=== PATIENT | male | born 1990 | race African-American/Black ===

== ENCOUNTER 2019-05-19 19:49 | Emergency (ER) | payer SELFPAY ==
[2019-05-19] MEDS ORDERED: TETANUS & DIPHTHERIA TOX,ADULT 0.5 ML VIAL ONE (20:11)
[2019-05-19] MEDS ORDERED: HYDROCODONE/APAP 10/325 TAB ONE (20:21)
[2019-05-19] MEDS ORDERED: DERMABOND SKIN ADHESIVE TOP ONE ×2 (20:24→23:07)
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
[2019-05-19] MEDS ORDERED: CEFTRIAXONE/SWI 1gm 1 GM/10 ML SYR ONE (21:26)
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
== END 2019-05-19 23:28 | disposition short-term general hospital (02) ==
LOC: ER 19:49
DX: S92.335A Nondisplaced fracture of third metatarsal bone, left foot, initial encounter for closed fracture (principal); S92.325A Nondisplaced fracture of second metatarsal bone, left foot, initial encounter for closed fracture; S92.345A Nondisplaced fracture of fourth metatarsal bone, left foot, initial encounter for closed fracture; S91.312A Laceration without foreign body, left foot, initial encounter; V86.55XA Driver of 3- or 4- wheeled all-terrain vehicle (ATV) injured in nontraffic accident, initial encounter; Z23 Encounter for immunization
CPT/HCPCS: 70450; 71045; 90471; 90714; 96365; 96366; 99285; J0696

== ENCOUNTER 2025-06-27 04:18 | Emergency (ER) | payer OTHER, SELFPAY ==
--- OUTSIDE RECORDS SUMMARY | 2025-06-27 04:21 | XMS REPORT | Continuity of Care Document ---
Author Name Unknown Address [address] [facility] [address] [place] [address] [facility] Address [address] [place] [address] Care Team Providers Care Film Masker Name Role Phone SOFI JOHNS Attending Clinician SOFI Hayes M.D. Attending Clinician Unavailable Problems Condition Name Condition Details Condition Category Status Onset Date Resolution Date Last Treatment Date Treating Clinician Comments Source Dislocatio n of tarsometat arsal joint, closed Dislocatio n of tarsometat arsal joint, closed Problem [facility] Closed dislocatio n of midtarsal joint of left foot, initial encounter Closed dislocatio n of midtarsal joint of left foot, initial encounter Problem Active [facility] Disp fx of third metatarsal bone, left foot, init for opn fx Disp fx of third metatarsal bone, left foot, init for opn fx Problem Active [facility] Left foot pain Left foot pain Problem Active [facility] Medications Ordered Medication Name Filled Medication Name Start Date Stop Date Current Medication? Ordering Clinician Indication Dosage Frequency Signature (SIG) Comments Components Source Acetaminoph en-Codeine 300-30 MG Oral Tablet Acetaminoph en-Codeine 300-30 MG Oral Tablet 2018-10 0-16 00:00: 00 Yes FER Aguila 1 Q8H TAKE 1 TABLET EVERY 8 HOURS PRN Pain [facility] Acetaminoph en-Codeine 300-30 MG Oral Tablet Acetaminoph en-Codeine 300-30 MG Oral Tablet 2018- 9-03 00:00: 00 Yes SOFI JOHNS M.D. 1 Q8H TAKE 1 TABLET EVERY 8 HOURS [facility] amlodipine 5 mg tablet amlodipine 5 mg tablet No amlodipine 5 mg tablet [facility] Vital Signs Vital Name Observation Time Observation Value Comments S ephraim Body Weight 2024-12-30 00:00:00 141.6 [lb_av] [facility] [place] [facility] BP Diastolic 2024-12-30 00:00:00 103 mm[Hg] [place] [facility] BP Systolic 2024-12-30 00:00:00 149 mm[Hg] Zhang [place] [facility] Procedures Procedure Date / Time Performed Performing Clinicia n Source Post Op Promis 29 Survey 2020-03-11 00:00:00 [facility] [U] XRAY FOOT MIN 3 VWS LEFT [id number] 2020-03-03 00:00:00 [facility] [U] XRAY FOOT MIN 3 VWS LEFT [id number] 2020-02-27 00:00:00 [facility] [U] XRAY FOOT MIN 3 VWS LEFT [id number] 2019-12-16 00:00:00 [facility] [U] XRAY FOOT MIN 3 VWS LEFT [id number] 2019-09-26 00:00:00 [facility] [U] XRAY FOOT MIN 3 VWS LEFT [id number] 2019-08-16 00:00:00 [facility] [U] XRAY FOOT MIN 3 VWS LEFT [id number] 2019-07-19 00:00:00 [facility] [U] XRAY FOOT MIN 3 VWS RIGHT [id number] 2019-07-03 00:00:00 [facility] [U] XRAY FOOT MIN 3 VWS RIGHT [id number] 2019-06-21 00:00:00 [facility] Encounters Start Date/Time End Date/Time Encounter Type Admission Type Attending Clinicians Care Facility Care Department Encounter ID Source 2020-02-10 10:01:30 Outpatient SOFI JOHNS [facility] [id number] [facility] 2024-12-30 00:00:00 2024-12-30 00:00:00 Kevin Rosa MD: [address], [place] [address] , Ph. [phone] [id number] [facility] [id number] [facility] 2020-03-10 13:30:00 2020-03-10 13:30:00 Appointmen t; SOFI JOHNS M.D. MUNZ, JOHN, M.D. [facility] Orthopedics [facility] [id number] [facility] 2020-03-03 12:15:00 2020-03-03 12:15:00 Appointmen t; SOFI JOHNS M.D. MUNZ, JOHN, M.D. [facility] Orthoped[facility] [id number] [place] [facility] 2020-02-12 13:00:00 2020-02-12 13:00:00 Appointmen t; SOFI JOHNS M.D. MUNZ, JOHN, M.D. [facility] [id number] [place] [facility] 2019-12-17 08:45:00 2019-12-17 08:45:00 Appointmen t; SOFI JOHNS M.D. MUNZ, JOHN, M.D. [facility] Orthopedics [facility] [id number] [place] [facility] 2019-10-08 08:15:00 2019-10-08 08:15:00 Appointmen t; SOFI JOHNS M.D. MUNZ, JOHN, M.D. [facility] Orthopedics [facility] [id number] [place] [facility] 2019-08-27 08:45:00 2019-08-27 08:45:00 Appointmen t; SOFI JOHNS M.D. MUNZ, JOHN, M.D. [facility] Orthopedics [facility] [id number] [place] [facility] 2019-07-30 09:45:00 2019-07-30 09:45:00 Appointmen t; SOFI JOHNS M.D. MUNZ, JOHN, M.D. [facility] Orthopedics [facility] [id number] [place] [facility] 2019-07-09 09:45:00 2019-07-09 09:45:00 Appointmen t; SOFI JOHNS M.D. MUNZ, JOHN, M.D. [facility] Orthopedics [facility] [id number] [place] [facility] 2019-06-25 10:30:00 2019-06-25 10:30:00 Appointmen t; SOFI JOHNS M.D. MUNZ, JOHN, M.D. [facility] Orthopedics [facility] [id number] [place] [facility] 2019-06-17 13:00:00 2019-06-17 13:00:00 Appointmen t; SOFI JOHNS M.D. MUNZ, JOHN, M.D. [facility] [id number] [place] [facility] 2019-06-17 11:19:00 2019-06-17 11:19:00 Outpatient [facility] [id number] [facility] 2019-06-11 09:15:00 2019-06-11 09:15:00 Appointmen t; SOFI JOHNS M.D. MUNZ, JOHN, M.D. [facility] [id number] [place] [facility] Results Test Description Test Time Test Comments Results Resul t Comments Source [U] XRAY FOOT MIN 3 VWS LEFT [id number] 2020-03-10 13:16:00 Images acquired, not reported on this accession number. [facility] [U] XRAY FOOT MIN 3 VWS LEFT [id number] 2019-08-27 08:54:00 Images acquired, not reported on this accession number. [facility] [U] XRAY FOOT MIN 3 VWS LEFT [id number] 2019-07-30 09:23:00 Images acquired, not reported on this accession number. [facility] [U] XRAY FOOT MIN 3 VWS RIGHT [id number] 2019-07-09 09:17:00 Images acquired, not reported on this accession number. [facility] [U] XRAY FOOT MIN 3 VWS RIGHT [id number] 2019-06-25 10:38:00 Images acquired, not reported on this accession number. [facility] [U] XRAY FOOT MIN 3 VWS LEFT [id number] 2019-06-11 09:17:00 Images acquired, not reported on this accession number. [facility]
[2025-06-27] MEDS ORDERED: ALBUTEROL 2.5 MG/3 ML NEB SOL ONE (04:59)
[2025-06-27] MEDS ORDERED: METHYLPREDNISOLONE 125 MG INJ ONE (05:00)
[2025-06-27] MEDS ORDERED: IPRATROPIUM BROM 0.5MG/2.5ML ONE (05:00)
[2025-06-27 05:01] LABS: Absolute Lymphocytes (CBC) 3.3 K/uL (0.7-4.9); Hematocrit 52.9 % (39.6-49.0); Hemoglobin 17.9 g/dL (13.6-17.9); MCH 29.3 pg (27.0-35.0); MCHC 33.8 g/dL (32.0-36.0); MCV 86.6 fL (80-100); MPV 8.8 fL (7.6-11.3); Nucleated RBC Absolute Count 0.0 (0-0); Nucleated Red Blood Cells % 0.1 % (0-0); RBC Red Blood Cell Count 6.12 M/uL (4.33-5.43); White Blood Count 6.50 thou/uL (4.3-10.9)
[2025-06-27 05:16] LABS: Influenza A Ag Negative; Influenza B Ag Negative; SARS-CoV-2 Antigen Rapid Res Negative (Negative)
[2025-06-27 05:22] LABS: Anion Gap 7.9 mEq/L (5.0-15.0); BUN Blood Urea Nitrogen 7.0 mg/dL (7-18); Glucose Level 82.0 mg/dL (74-106); Magnesium 1.8 mg/dL (1.6-2.4); NT PRO-BNP 27.0 pg/mL (<125); Potassium 3.9 mEq/L (3.5-5.1); Troponin High Sensitivity 5.5 pg/mL (<58.9)
[2025-06-27 05:31] LABS: Differential Total Cells Count 100; Segmented Neutrophils 27 % (40-80)
[2025-06-27 05:32] LABS: Blood Morphology Comment NOT SEEN (NOT SEEN)
[2025-06-27] MEDS ORDERED: AMLODIPINE 5 MG TAB ONE (06:01)
--- NOTE | 2025-06-27 06:02 | EDPHYS ---
Physician Documentation [facility] Name: Mack Adame Age: 34 yrs Sex: Male : 1990 Arrival Date: 06/27/2025 Time: 04:18 Bed 7 Private MD: BERNARDINO Physician Deejay Weir HPI: 06/27 04:40 This 34 yrs old Black Male presents to ER via Ambulatory with complaints of Shortness cp Of Breath. 04:40 The patient has shortness of breath at rest. Onset: The symptoms/episode began/occurred cp this morning, awoke patient from sleep. Duration: The symptoms are continuous. Associated signs and symptoms: Pertinent negatives: chest pain, diaphoresis, fever, vomiting. Severity of symptoms: in the emergency department the symptoms are unchanged despite home interventions. Historical: - Allergies: 04:27 No Known Allergies; cp4 - Immunization history:: Adult Immunizations up to date. - Infectious Disease History:: Denies. - Social history:: Smoking status: Patient reports the use of cigarette tobacco products, smokes one-half pack cigarettes per day. ROS: 04:45 Constitutional: Negative for body aches, chills, fever, poor PO intake, cp 04:45 Cardiovascular: Negative for chest pain, edema, palpitations, cp 04:45 Respiratory: Positive for shortness of breath, at rest. Negative for cough, 04:45 Eyes: Negative for injury, pain, redness, and discharge, cp 04:45 ENT: Negative for drainage from ear(s), ear pain, sore throat, difficulty swallowing, cp difficulty handling secretions, 04:45 Abdomen/GI: Negative for abdominal pain, vomiting, diarrhea, constipation, 04:45 Back: Negative for pain at rest, pain with movement, 04:45 Neuro: Negative for altered mental status, dizziness, headache, numbness, weakness, 04:45 All other systems are negative, Exam: 04:50 Constitutional: The patient appears in no acute distress, alert, awake, cp non-diaphoretic, non-toxic, well developed, well nourished, 04:50 Head/Face: Normocephalic, atraumatic. cp 04:50 Eyes: Periorbital structures: appear normal, Conjunctiva: normal, no exudate, no injection, Sclera: Lids and lashes: appear normal, bilaterally, 04:50 ENT: External ear(s): are unremarkable, Nose: Mouth: Lips: moist, Oral mucosa: moist, Posterior pharynx: Airway: no evidence of obstruction, patent, erythema, is not appreciated, exudate, is not appreciated, 04:50 Neck: ROM/movement: is normal, is supple, without pain, no range of motions limitations, 04:50 Chest/axilla: Inspection: normal, Palpation: is normal, no crepitus, no tenderness, 04:50 Cardiovascular: Rate: normal, Rhythm: regular, Edema: is not appreciated, JVD: is not appreciated, 04:50 Respiratory: the patient does not display signs of respiratory distress, Respirations: labored breathing, that is mild, intercostal retractions, are absent, Breath sounds: decreased breath sounds, that are mild, throughout, stridor, is not appreciated, wheezing: that is mild, is heard diffusely, 04:50 Abdomen/GI: Inspection: abdomen appears normal, Palpation: abdomen is soft and non-tender, in all quadrants, 04:50 Back: pain, is absent, ROM is normal, 04:50 Neuro: Orientation: to person, place \T\ time. Mentation: is normal, 04:57 ECG was reviewed by the Attending Physician. Vital Signs: 04:26 BP 157 / 107; Pulse 86; Resp 18; Temp 97.8; Pulse Ox 92% ; Weight 63.5 kg; Height 5 ft. cp4 9 in. ; Pain 0/10; 05:28 BP 150 / 115; Pulse 69; Resp 15; Pulse Ox 97% on R/A; Weight 63.5 kg; Height 5 ft. 9 tb4 in. ; Pain 0/10; 06:21 BP 115 / 101; Pulse 79; Resp 15; Pulse Ox 97% on R/A; Pain 0/10; tb4 05:28 Body Mass Index 20.67 (63.50 kg, 175.26 cm) tb4 04:26 Pain Scale: Adult cp4 05:28 Pain Scale: Adult tb4 06:21 Pain Scale: Adult tb4 MDM: 04:22 Medical Screening Exam initiated cp 06:02 Data reviewed: vital signs, nurses notes, lab test result(s), EKG, radiologic studies, cp plain films, and as a result, I will discharge patient. 06:02 Differential diagnosis: asthma, Bronchitis CHF exacerbation, Chronic Obstructive cp Pulmonary Disease Myocardial Infarction pneumonia, Pneumothorax pulmonary edema, Pulmonary Embolism Unstable Angina. Antibiotic administration: Not indicated, the patient does not have an appreciated infiltrate. I considered the following discharge prescriptions or medication management in the emergency department Medications were administered in the Emergency Department. See MAR. Independent interpretation of the following test(s) in the Emergency Department EKG: See my EKG interpretation above X-Ray: My interpretation is chest xray negative for infiltrates. Counseling: I had a detailed discussion with the patient and/or guardian regarding the historical points, exam findings, and any diagnostic results supporting the discharge/admit diagnosis, lab results, radiology results, the need for outpatient follow up, a family practitioner, to return to the emergency department if symptoms worsen or persist or if there are any questions or concerns that arise at home. Response to treatment: the patient's symptoms have mildly improved after treatment, and as a result, I will discharge patient. 06/27 04:36 Order name: Basic Metabolic Panel; Complete Time: 05:47 06/27 05:47 Interpretation: Normal except: CL 108. 06/27 04:36 Order name: CBC with Diff; Complete Time: 05:47 06/27 05:48 Interpretation: Normal except: RBC 6.12; HCT 52.9; KAREN% 32.6; LYM% 50.7. 06/27 04:36 Order name: D-Dimer; Complete Time: 05:47 06/27 04:36 Order name: Magnesium; Complete Time: 05:47 06/27 04:36 Order name: NT PRO-BNP; Complete Time: 05:47 06/27 04:36 Order name: Troponin HS; Complete Time: 05:47 cp 06/27 04:36 Order name: COVID-19 Ag + Flu A+B Ag; Complete Time: 05:47 06/27 05:10 Order name: Manual Differential; Complete Time: 05:47 EDMS 06/27 05:48 Interpretation: Normal except: SEGS 27; LYM 53. 06/27 04:36 Order name: XRAY Chest (1 view) 06/27 04:36 Order name: Cardiac monitoring; Complete Time: 05:17 cp 06/27 04:36 Order name: EKG - Nurse/Tech; Complete Time: 05:17 06/27 04:36 Order name: IV Saline Lock; Complete Time: 04:39 cp 06/27 04:36 Order name: Labs collected and sent; Complete Time: 04:40 cp 06/27 04:36 Order name: O2 Per Protocol; Complete Time: 04:40 cp 06/27 04:36 Order name: O2 Sat Monitoring; Complete Time: 04:40 cp 06/27 05:08 Order name: Labs - recollect needed: recollect blue top; Complete Time: 05:26 kmf EC:57 Rate is 74 beats/min. Rhythm is regular. IL interval is normal. QRS interval is normal. cp QT interval is normal. T waves are Inverted in lead aVR. Interpreted by me. Reviewed by me. Administered Medications: 05:16 Drug: DuoNeb Nebulize (2.5 mg - 0.5 mg) 3 ml Nebulizer once Route: Nebulizer; tb4 06:00 Follow up: Response: No adverse reaction tb4 05:17 Drug: MethylPrednisoLONE IVP 125 mg IVP once Route: IVP; Site: right antecubital; tb4 06:00 Follow up: Response: No adverse reaction tb4 05:55 Drug: amLODIPine PO 5 mg PO once Route: PO; tb4 06:21 Follow up: Response: No adverse reaction tb4 Disposition Summary: 06/27/25 06:02 Discharge Ordered Notes: Location: Home cp Problem: new cp Symptoms: have improved cp Condition: Stable cp Diagnosis - Hypertensive heart disease without heart failure cp - Wheezing cp - Shortness of breath cp - Tobacco use cp Followup: cp - With: Private Physician - When: 2 - 3 days - Reason: Recheck today's complaints Discharge Instructions: - Discharge Summary Sheet cp - Hypertension, Adult cp - Shortness of Breath, Adult cp - Steps to Quit Smoking cp - Health Risks of Smoking cp - Aspirin and Your Heart cp - Form - Blood Pressure Record Sheet cp - How to Take Your Blood Pressure cp Forms: - Medication Reconciliation Form cp - Antibiotic Education cp - Prescription Opioid Use cp - Patient Portal Instructions cp - Leadership Thank You Letter cp - Work release form tb4 Prescriptions: - albuterol sulfate 90 mcg/actuation Inhalation HFA Aerosol Inhaler - inhale 1 puff INHALATION route every 4 to 6 hours as needed for shortness of cp breath or wheezing; 1 unit; Refills: 0, Product Selection Permitted - Norvasc 5 mg Oral tablet - take 1 tablet ORAL route once daily; 30 tablet; Refills: 0, Product Selection cp Permitted - Prednisone 20 mg Oral Tablet - take 2 tablets ORAL route once daily for 5 days; 10 tablet; Refills: 0, Product cp Selection Permitted Addendum: 06/30/2025 11:37 Co-signature as Attending Physician, Deejay Weir MD I agree with the assessment and c rosa plan of care. Signatures: Dispatcher [employer] EDMS Deejay Weir MD MD cha Page, Corey, PA-C PA-C Padmini Ramos cp4 Zuleyma Connolly Pamela Wesley, RN RN tb4 Corrections: (The following items were deleted from the chart) 06/27 04:37 04:37 BASIC METABOLIC PANEL+C.LAB.BRZ ordered. EDMS EDMS 04:37 04:37 CBC+H.LAB.BRZ ordered. EDMS EDMS 04:37 04:37 D-DIMER+COAG.LAB.BRZ ordered. EDMS EDMS 04:37 04:37 MAGNESIUM+C.LAB.BRZ ordered. EDMS EDMS 04:37 04:37 PROBNP+C.LAB.BRZ ordered. EDMS EDMS 04:37 04:37 Troponin High Sensitivity+C.LAB.BRZ ordered. EDMS EDMS 04:37 04:37 COVID-19 Ag + Flu A+B Ag+I.LAB.BRZ ordered. EDMS EDMS 04:37 04:37 Chest Single View+RAD.RAD.BRZ ordered. EDMS EDMS
--- NOTE | 2025-06-27 06:02 | ER ---
Nurse's Notes [facility] Name: Mack Adame Age: 34 yrs Sex: Male : 1990 Arrival Date: 06/27/2025 Time: 04:18 Bed 7 Private MD: Diagnosis: Hypertensive heart disease without heart failure;Wheezing;Shortness of breath;Tobacco use Presentation: 06/27 04:26 Chief complaint: Patient states: shortness of breath that started around 0300. Reports cp4 hx of asthma and cough. Coronavirus screen: Client denies travel out of the [place] in the last 14 days. At this time, the client does not indicate any symptoms associated with coronavirus-19. Ebola Screen: Patient negative for fever greater than or equal to 101.5 degrees Fahrenheit, and additional compatible Ebola Virus Disease symptoms Patient denies exposure to infectious person. Patient denies travel to an Ebola-affected area in the 21 days before illness onset. No symptoms or risks identified at this time. Initial Sepsis Screen: Does the patient meet any 2 criteria? No. Patient's initial sepsis screen is negative. Does the patient have a suspected source of infection? No. Patient's initial sepsis screen is negative. Risk Assessment: Do you want to hurt yourself or someone else? Patient reports no desire to harm self or others. Onset of symptoms was June 27, 2025 at 03:00. 04:26 Method Of Arrival: Ambulatory cp4 04:26 Acuity: SHITAL 3 cp4 Triage Assessment: 04:27 General: Appears in no apparent distress. uncomfortable, Behavior is calm, cooperative, cp4 appropriate for age. Pain: Denies pain. Respiratory: Reports shortness of breath at rest cough that is Onset: The symptoms/episode began/occurred this morning, the patient has mild shortness of breath. Historical: - Allergies: 04:27 No Known Allergies; cp4 - Immunization history:: Adult Immunizations up to date. - Infectious Disease History:: Denies. - Social history:: Smoking status: Patient reports the use of cigarette tobacco products, smokes one-half pack cigarettes per day. Screenin:27 [facility] ED Fall Risk Assessment (Adult) History of falling in the last 3 months, tb4 including since admission No falls in past 3 months (0 pts) Confusion or Disorientation No (0 pts) Intoxicated or Sedated No (0 pts) Impaired Gait No (0 pts) Mobility Assist Device Used No (0 pt) Altered Elimination No (0 pt) Score/Fall Risk Level 0 - 2 = Low Risk Maintained a safe environment. Abuse screen: Denies threats or abuse. Denies injuries from another. Nutritional screening: No deficits noted. Tuberculosis screening: No symptoms or risk factors identified. Assessment: 05:30 General: Appears uncomfortable, Behavior is calm, cooperative. Pain: Denies pain. tb4 Neuro: Level of Consciousness is awake, alert, obeys commands, Oriented to person, place, time, situation, Moves all extremities. Full function Gait is steady, Speech is normal, Facial symmetry appears normal. Cardiovascular: Rhythm is sinus rhythm. Respiratory: Airway is patent Respiratory effort is even, unlabored, Respiratory pattern is regular, symmetrical. Respiratory: Reports shortness of breath at rest since began at 0300 Breath sounds are clear bilaterally. GI: No signs and/or symptoms were reported involving the gastrointestinal system. : No signs and/or symptoms were reported regarding the genitourinary system. EENT: No signs and/or symptoms were reported regarding the EENT system. Derm: No signs and/or symptoms reported regarding the dermatologic system. Musculoskeletal: No signs and/or symptoms reported regarding the musculoskeletal system. Circulation, motion, and sensation intact. Capillary refill < 3 seconds, is brisk, in bilateral fingers. Range of motion: intact in all extremities. Vital Signs: 04:26 BP 157 / 107; Pulse 86; Resp 18; Temp 97.8; Pulse Ox 92% ; Weight 63.5 kg; Height 5 ft. cp4 9 in. ; Pain 0/10; 05:28 BP 150 / 115; Pulse 69; Resp 15; Pulse Ox 97% on R/A; Weight 63.5 kg; Height 5 ft. 9 tb4 in. ; Pain 0/10; 06:21 BP 115 / 101; Pulse 79; Resp 15; Pulse Ox 97% on R/A; Pain 0/10; tb4 05:28 Body Mass Index 20.67 (63.50 kg, 175.26 cm) tb4 04:26 Pain Scale: Adult cp4 05:28 Pain Scale: Adult tb4 06:21 Pain Scale: Adult tb4 ED Course: 04:19 Patient arrived in ED. mr 04:20 Deejay Abarca PA-C [facility] cp 04:20 Deejay Weir MD is Attending Physician. cp 04:27 Triage completed. cp4 04:27 Arm band placed on right wrist. Patient placed in waiting room. cp4 04:36 Inserted saline lock: 20 gauge in right antecubital area, using aseptic technique. tb4 Blood collected. Flushed with 10 mL NS. 05:01 Initial lab(s) drawn, by ri, sent to lab. EKG done, by ED staff, COVID swab sent to tb4 lab. X-ray(s) taken. 05:08 XRAY Chest (1 view) In Process Unspecified. EDMS 05:27 Patient has correct armband on for positive identification. Bed in low position. Call tb4 light in reach. Client placed on continuous cardiac and pulse oximetry monitoring. NIBP monitoring applied. campus monitor on. Pulse ox on. Lights dimmed. 05:27 No provider procedures requiring assistance completed. tb4 06:20 IV discontinued, intact, bleeding controlled, No redness/swelling at site. Pressure tb4 dressing applied. 06:22 Provided Education on: Take medication as prescribed. tb4 Administered Medications: 05:16 Drug: DuoNeb Nebulize (2.5 mg - 0.5 mg) 3 ml Nebulizer once Route: Nebulizer; tb4 06:00 Follow up: Response: No adverse reaction tb4 05:17 Drug: MethylPrednisoLONE IVP 125 mg IVP once Route: IVP; Site: right antecubital; tb4 06:00 Follow up: Response: No adverse reaction tb4 05:55 Drug: amLODIPine PO 5 mg PO once Route: PO; tb4 06:21 Follow up: Response: No adverse reaction tb4 Medication: 05:28 VIS not applicable for this client. tb4 Outcome: 06:02 Discharge ordered by . cp 06:22 Discharged to home ambulatory, tb4 06:22 Condition: stable 06:22 Discharge instructions given to patient, Instructed on discharge instructions, follow up and referral plans. Demonstrated understanding of instructions, follow-up care, medications, Prescriptions given X 3, 06:23 Patient left the ED. tb4 Signatures: Dispatcher [employer] [facility] Alberta Patel, Reg Reg mr Deejay Abarca PA-C PA-C cp Potter, Christina cp4 Pamela Rm RN RN tb4
[2025-06-27 06:27] VITALS: TEMP 97.8
[2025-06-27 06:29] VITALS: O2SAT 97
[2025-06-27 06:31] VITALS: BP 115/101
--- NOTE | 2025-06-27 06:39 | RAD REPORT ---
EXAM: XR Chest, 1 View CLINICAL HISTORY: The patient is 34 years old and is Male; SOB. TECHNIQUE: Frontal view of the chest. COMPARISON: XR Chest 05/20/2019 (report only). FINDINGS: LUNGS: Unremarkable. No consolidation. PLEURAL SPACE: Unremarkable. No pneumothorax. HEART: Unremarkable. No cardiomegaly. MEDIASTINUM: Unremarkable. Normal mediastinal contour. BONES/JOINTS: Unremarkable. No acute fracture. TUBES, LINES AND DEVICES: EKG leads overlie the chest. IMPRESSION: No acute cardiopulmonary findings. Followup PA and lateral views would be helpful if symptoms persist . Electronically signed by: Abhijeet Kebede MD 06/27/2025 06:25 AM CDT RP Due to temporary technical issues with the PACS/[employer] reporting system, reports are being olivier d by the in-house radiologist without review as a courtesy to ensure prompt reporting the interpreting radiologist is fully responsible for the content of the report. Transcribed Date/Time: 06/27/2025 6:39 AM
== END 2025-06-27 06:23 | disposition home or self-care (01) ==
LOC: ER 04:18
DX: I11.9 Hypertensive heart disease without heart failure (principal); R06.2 Wheezing; Z72.0 Tobacco use; Z11.52 Encounter for screening for COVID-19
CPT/HCPCS: 93005; 85025; 80048; 36415; 83735; 85379; 84484; 83880; 71045; 96374; 99285; 87428; J7613; J7644; J2919